=== PATIENT | female | born 1945 | race Caucasian/White ===

== ENCOUNTER → 2017-06-06 | Outpatient (CLI) | payer MEDICARE ==
--- NOTE | 2017-06-06 15:26 | US ---
EXAMINATION TYPE: US kidneys/renal and bladder DATE OF EXAM: 06/06/2017 COMPARISON: NONE CLINICAL HISTORY: Hematuria R31.9. Microscopic hematuria EXAM MEASUREMENTS: Right Kidney: 9.8 x 3.3 x 5.5 cm Left Kidney: 9.7 x 4.1 x 5.1 cm Right Kidney: wnl Left Kidney: Difficult to visualize due to overlying bowel gas/ Dilated renal pelvis= 2.0 cm Bladder: wnl Bilateral Jets seen: No There is prominent left renal pelvis without suspicious calyceal dilatation. No nephrolithiasis is s een. No masses are identified. The urinary bladder is anechoic. Bilateral ureteral jets are seen. IMPRESSION: No significant finding is seen to account for patient's symptoms the left kidney is noted suboptimall y evaluated. If symptoms persists further investigation with CT urogram would be advised.
--- NOTE | 2017-06-06 15:29 | US ---
EXAMINATION TYPE: US pelvic complete DATE OF EXAM: 06/06/2017 COMPARISON: NONE CLINICAL HISTORY: Hematuria R31.9. Microscopic hematuria TECHNIQUE: Transabdominal (TA) Date of LMP: 1998 EXAM MEASUREMENTS: Uterus: 7.1 x 2.0 x 4.1 cm Endometrial Stripe: 0.4 cm Right Ovary: 2.2 x 1.2 x 1.2 cm Left Ovary: 2.2 x 1.7 x 1.3 cm 1. Uterus: Anteverted wnl 2. Endometrium: wnl 3. Right Ovary: wnl 5. Bilateral Adnexa: wnl 6. Posterior cul-de-sac: wnl No abnormality visualized within pelvis IMPRESSION: Transabdominal pelvic ultrasound evaluation is unremarkable.
== END | disposition home or self-care (01) ==
LOC: RADUSWWP 14:46
PROVIDERS: ATTEND Registered Nurse General Practice
DX: R31.9 Hematuria, unspecified (principal)
CPT/HCPCS: 76770; 76856

== ENCOUNTER → 2017-07-13 | Outpatient (CLI) | payer MEDICARE ==
--- NOTE | 2017-07-13 16:22 | BD ---
EXAMINATION TYPE: MG DEXA axial skeleton. DATE OF EXAM: 07/13/2017 COMPARISON: NONE CLINICAL HISTORY: Height: 5 FT 4 1/2 IN Weight: 121 FRAX RISK QUESTIONS: Alcohol (3 or more units per day): NO Family History (Parent hip fracture): YES Glucocorticoids (More than 3mos): NO (Ex: prednisone, prednisolone, methylprednisolone, dexamethasone, and hydrocortisone). History of Fracture in Adulthood: NO Secondary Osteoporosis: 1. Type 1 Diabetes: NO 2. Hyperthyroidism: NO 3. Menopause before 45: NO 4. Malnutrition: NO 5. Chronic liver disease: NO Rheumatoid Arthritis: NO Current Tobacco Use: NO RISK FACTORS HISTORY OF: Active: YES Postmenopausal woman: 53 MEDICATIONS: Prednisone or other steroids: SYMBICORT How Long: SEVERAL YEARS Additional Medications: ESTROGEN CREAM VAGINAL,SYMBICORT,SINGULAIR, PREVASTATIN Additional History: EXAM MEASUREMENTS: Bone mineral densitometry was performed using the [employer] System. Bone mineral density as measured about the Lumbar spine is: ----- L1-L4(G/cm2): 1.067 T Score Values are as follows: ----- L2: -2.0 ----- L3: -0.9 ----- L4: 1.1 ----- L1-L4: -0.9 Bone mineral density has: Increased 9.7% since study of: 2010 Bone mineral density about the R hip (g/cm2): 0.661 Bone mineral density about the L hip (g/cm2): 0.651 T Score values are as follows: -----R Neck: -2.7 -----L Neck: -2.8 -----R Total: -2.8 -----L Total: -2.8 Bone mineral density has: Decreased -3.8% since study of: 2010 IMPRESSION: Osteoporosis (T Score less than -2.5) as noted by T Score values at the There is increased fracture risk and therapy is usually indicated based on age. Re-Screen 1-2 years. NOTE: T-SCORE=SD OF THE YOUNG ADULT MEAN.
--- NOTE | 2017-07-17 08:28 | MM ---
Reason for exam: screening (asymptomatic). Last mammogram was performed 3 years and 1 month ago. History: Patient is postmenopausal. Physical Findings: A clinical breast exam by your physician is recommended on an annual basis and results should be correlated with mammographic findings. MG 3D Screening Mammo W/Cad Bilateral CC and MLO view(s) were taken. Prior study comparison: June 18, 2014, right breast MG work up mamm w CAD RT. June 16, 2014, bilateral MG screening mammo w CAD. Summation right posterior MLO view, negative on tomosynthesis. No significant changes when compared with prior studies. ASSESSMENT: Benign, BI-RAD 2 RECOMMENDATION: Routine screening mammogram of both breasts in 1 year.
== END | disposition home or self-care (01) ==
LOC: RADBDWWP 12:41
PROVIDERS: ATTEND Family Medicine
DX: Z12.31 Encounter for screening mammogram for malignant neoplasm of breast (principal); M81.0 Age-related osteoporosis without current pathological fracture
CPT/HCPCS: 77080; 77063; G0202

== ENCOUNTER → 2019-08-01 | Outpatient (CLI) | payer MEDICARE ==
--- NOTE | 2019-08-02 12:11 | MM ---
Reason for exam: screening (asymptomatic). Last mammogram was performed 2 years and 1 month ago. History: Patient is postmenopausal. Took hormonal contraceptives for 15 years. Physical Findings: A clinical breast exam by your physician is recommended on an annual basis and results should be correlated with mammographic findings. MG 3D Screening Mammo W/Cad Bilateral CC and MLO view(s) were taken. Prior study comparison: July 13, 2017, bilateral MG 3d screening mammo w/cad. June 18, 2014, right breast MG work up mamm w CAD RT. There are scattered fibroglandular densities. No suspicious abnormality. No significant changes when compared with prior studies. ASSESSMENT: Negative, BI-RAD 1 RECOMMENDATION: Routine screening mammogram of both breasts in 1 year.
== END | disposition home or self-care (01) ==
LOC: RADMAMWWP 11:03
PROVIDERS: ATTEND Family Medicine
DX: Z12.31 Encounter for screening mammogram for malignant neoplasm of breast (principal)
CPT/HCPCS: 77063; 77067

== ENCOUNTER 2023-04-20 08:13 | Observation (INO) | payer MEDICARE ==
[2023-04-20] MEDS ORDERED: ASPIRIN 81 MG PO STA (08:30)
[2023-04-20] MEDS ORDERED: DILTIAZEM DRIP BOLUS FROM BAG 1 MG SOLN IV ONE (08:42)
[2023-04-20] MEDS ORDERED: HEPARIN SODIUM 1,000 UN/ML (10ML VL) IV PRN (08:43)
[2023-04-20] MEDS ORDERED: HEPARIN SODIUM 1,000 UN/ML (10ML VL) IV ONE (08:43)
[2023-04-20] MEDS ORDERED: SODIUM CHLORIDE 0.9% 1,000 ML IV STA (08:50)
[2023-04-20] MEDS ORDERED: DILTIAZEM 125 MG in SODIUM CHLORIDE 0.9% 100 ML IV SCH ×3 (09:00→10:00)
[2023-04-20 09:05] LABS: Basophils % (A) 1 %; Eosinophils # (A) 0.1 k/uL (0-0.7); Eosinophils % (A) 2 %; HCT 48.6 % (34.0-46.0); HGB 15.9 gm/dL (11.4-16.0); Lymphocytes # (A) 2.1 k/uL (1.0-4.8); Lymphocytes % (A) 35 %; MCH 33.1 pg (25.0-35.0); MCHC 32.7 g/dL (31.0-37.0); Macrocytosis Slight; Mean Platelet Volume 8.3; Monocytes # (A) 0.5 k/uL (0-1.0); Monocytes % (A) 8 %; Neutrophils # (A) 3.1 k/uL (1.3-7.7); Neutrophils % (A) 52 %; Platelet Count 313 k/uL (150-450); RBC 4.81 m/uL (3.80-5.40); RDW 13.3 % (11.5-15.5); WBC 5.9 k/uL (3.8-10.6)
--- NOTE | 2023-04-20 09:08 | ED ---
General Adult HPI - General Chief complaint: Recheck/Abnormal Lab/Rx Stated complaint: Poss Afib, sent over from [facility] Time Seen by Provider: 04/20/23 08:15 Source: patient, RN notes reviewed, old records reviewed Mode of arrival: wheelchair - History of Present Illness Initial comments: Patient is a 78 female who presents emergency Department complaining of A. fib with RVR. Patient has no symptoms. Has a history of DVT longer on blood thinners, asthma, chronic back pain. He was about to receive a nerve block at [facility] when it was discovered she was in A. fib with RVR. She is no history of the. Denies palpitations. Denies chest pain. Denies shortness of breath. Denies leg swelling. Denies abdominal pain, nausea, vomiting, diaphoresis. Was sent here for further evaluation. Was sent with her EKG. - Related Data Home Medications Medication Instructions Recorded Confirmed Aspirin EC [Ecotrin] 325 mg PO DAILY@1200 04/20/23 04/20/23 Budesonide/Formoterol Fumarate 2 puff INHALATION RT-BID 04/20/23 04/20/23 [Symbicort 160-4.5 Mcg Inhaler] Gabapentin 800 mg PO BID@0600,1900 04/20/23 04/20/23 Levothyroxine Sodium [Synthroid] 50 mcg PO DAILY@0600 04/20/23 04/20/23 Mirabegron [Myrbetriq] 50 mg PO HS@19004/20/23 04/20/23 Montelukast [Singulair] 10 mg PO HS@189904/20/23 04/20/23 Omeprazole [PriLOSEC] 20 mg PO HS@189904/20/23 04/20/23 Pentosan Polysulfate Sodium 100 mg PO TID@0600,1200,1900 04/20/23 04/20/23 [Elmiron] Pravastatin Sodium [Pravachol] 20 mg PO HS@19004/20/23 04/20/23 Tiotropium 18 Mcg/Puff [Spiriva] 1 cap INHALATION RT-DAILY 04/20/23 04/20/23 Vit C/E/Zn/Coppr/Lutein/Zeaxan 1 cap PO BID@1200,1900 04/20/23 04/20/23 [Preservision Areds 2 Softgel] traMADol HCL 50 mg PO BID PRN 04/20/23 04/20/23 Allergies Allergy/AdvReac Type Severity Reaction Status Date / Time No Known Allergies Allergy Verified 04/20/23 10:20 Review of Systems ROS Statement: Those systems with pertinent positive or pertinent negative responses have been documented in the HPI. Review of Systems: CONST: Denies fever EYES: Denies blurry vision ENT: Denies nasal congestion C/V: Denies Chest pain RESP: Denies shortness of breath GI: Denies abdominal pain : Denies dysuria SKIN: Denies rash. MSK: Denies joint pain. NEURO: Denies headache ROS Other: All systems not noted in ROS Statement are negative. Past Medical History Past Medical History: Asthma, Deep Vein Thrombosis (DVT) History of Any Multi-Drug Resistant Organisms: None Reported Additional Past Surgical History / Comment(s): DVT removal 2018 Past Psychological History: No Psychological Hx Reported Smoking Status: Never smoker Past Alcohol Use History: None Reported Past Drug Use History: None Reported General Exam - General Exam Comments Initial Comments: General: Appears in no acute distress. HEAD: Normal with no signs of head trauma. EYES: PERRLA, EOMI, conjunctiva normal, no discharge. ENT: Hearing grossly intact, normal oropharynx. RESPIRATORY: Clear breath sounds bilaterally. No wheezes, rales, or rhonchi. C/V: Irregular rate and rhythm. S1 and S2 auscultated. No significant perip heral pitting edema. Peripheral pulses 2+ intact throughout. ABD: Abd is soft, nontender, nondistended EXT: Normal range of motion, no obvious deformity SKIN: No rashes or lesions observed on exposed skin. NEURO: Alert and oriented x 4. Cranial nerves II-XII intact. No focal sensory or strength deficits. Course Vital Signs 04/20/23 08:15 Temperature 97.6 F Pulse Rate 63 Respiratory 18 Rate Blood Pressure 141/79 O2 Sat by Pulse 96 Oximetry Medical Decision Making - Medical Decision Making Was pt. sent in by a medical professional or institution (, PA, [employer], urgent care, hospital, or [facility]...) When possible be specific @ -Patient sent in from [facility]. I spoke with Dr. Gamble her anesthesiologist there who informed me of the patient's impending arrival.. Did you speak to anyone other than the patient for history (EMS, parent, family, police, friend...)? What history was obtained from this source @ -No Did you review nursing and triage notes (agree or disagree)? Why? @ -I reviewed and agree with nursing and triage notes Were old charts reviewed (outside hosp., previous admission, EMS record, old EKG, old radiological studies, urgent care reports/EKG's, [facility] records)? Report findings @ -No old charts were reviewed Differential Diagnosis (chest pain, altered mental status, abdominal pain women, abdominal pain men, vaginal bleeding, weakness, fever, dyspnea, syncope, headache, dizziness, GI bleed, back pain, seizure, CVA, palpatations, mental health, musculoskeletal)? @ -New-onset atrial fibrillation, ACS, PE, infection, electrolyte abnormality. This list is not all inclusive. EKG interpreted by me (3pts min.). @ -As above X-rays interpreted by me (1pt min.). @ -Chest x-ray reveals no obvious acute cardio pulmonary process. CT interpreted by me (1pt min.). @ -None done U/S interpreted by me (1pt. min.). @ -None done What testing was considered but not performed or refused? (CT, X-rays, U/S, labs)? Why? @ -None What meds were considered but not given or refused? Why? @ -None Did you discuss the management of the patient with other professionals (professionals i.e. , PA, [employer], lab, RT, psych nurse, psychosocial rehabilitation counselor, bond manager, teacher, credit review officer, assistant case manager)? Give summary @ -Discussed with the admitting physician Dr. Treva arias who accepted the patient. Was smoking cessation discussed for >3mins.? @ -No Was critical care preformed (if so, how long)? @ -Yes, 38 minutes Were there social determinants of health that impacted care today? How? (Homelessness, low income, unemployed, alcoholism, drug addiction, transportation, low edu. Level, literacy, decrease access to med. care, shelter, rehab)? @ -No Was there de-escalation of care discussed even if they declined (Discuss DNR or withdrawal of care, Hospice)? DNR status @ -No What co-morbidities impacted this encounter? (DM, HTN, Smoking, COPD, CAD, Cancer, CVA, ARF, Chemo, Hep., AIDS, mental health diagnosis, sleep apnea, morbid obesity)? @ -None Was patient admitted / discharged? Hospital course, mention meds given and route, prescriptions, significant lab abnormalities, going to OR and other pertinent info. @ -Based on the patient's presentation and physical exam, the patient will RVR. Heart rate was documented is normal in triage however at bedside patient appears to be in A. fib with RVR as her pulse is irregularly irregular. EKG doesn't support this. No evidence of acute ischemia. We will obtain cardiac workup. Patient was in agreement this plan. She was started on Cardizem drip as well as a heparin drip for the A. fib. Vital signs otherwise are within acceptable limits. She is hemodynamically stable except for the A. fib with RVR. She was in agreement this plan. Patient did not require a Cardizem bolus as her heart rate did decrease spontaneously to 110-125. She is placed on a Cardizem drip and remained stable in this range. EKG shows A. fib with RVR with no evidence of acute ischemia. Imaging unremarkable. Labs are unremarkable this includes an undetectable troponin, as was a d-dimer that is within normal limits. Patient does appear to have a UTI on urinalysis. She'll be started on Rocephin for her. Patient was in agreement this plan. I updated her on the results of her workup. She will be admitted on the Cardizem drip and on heparin for cardiology evaluation. Echo was ordered. I spoke with the admitting team, city call Dr. Tilley who accepted the admission. Undiagnosed new problem with uncertain prognosis? @ -No Drug Therapy requiring intensive monitoring for toxicity (Heparin, Nitro, Insulin, Cardizem)? @ -yes, cardizem, heparin Were any procedures done? @ -No Diagnosis/symptom? @ -New-onset atrial for ablation with RVR Acute, or Chronic, or Acute on Chronic? @ -Acute Uncomplicated (without systemic symptoms) or Complicated (systemic symptoms)? @ -Uncomplicated Side effects of treatment? @ -No Exacerbation, Progression, or Severe Exacerbation? @ -No Poses a threat to life or bodily function? How? (Chest pain, [place], [place], pneumonia, PE, COPD, DKA, ARF, appy, cholecystitis, CVA, Diverticulitis, Homicidal, Suicidal, threat to staff... and all critical care pts) @ -Potentially yes Diagnosis/symptom? @ -UTI Acute, or Chronic, or Acute on Chronic? @ -Acute Uncomplicated (without systemic symptoms) or Complicated (systemic symptoms)? @ -Complicated Side effects of treatment? @ -none Exacerbation, Progression, or Severe Exacerbation] @ -no Poses a threat to life or bodily function? @ -no - Lab Data Result diagrams: 04/20/23 08:49 04/20/23 08:49 Lab Results 04/20/23 04/20/23 04/20/23 Range/Units 08:49 08:49 08:49 WBC 5.9 (3.8-10.6) k/uL RBC 4.81 (3.80-5.40) m/uL Hgb 15.9 (11.4-16.0) gm/dL Hct 48.6 H (34.0-46.0) % MCV 101.0 H (80.0-100.0) fL MCH 33.1 (25.0-35.0) pg MCHC 32.7 (31.0-37.0) g/dL RDW 13.3 (11.5-15.5) % Plt Count 313 (150-450) k/uL MPV 8.3 Neutrophils % 52 % Lymphocytes % 35 % Monocytes % 8 % Eosinophils % 2 % Basophils % 1 % Neutrophils # 3.1 (1.3-7.7) k/uL Lymphocytes # 2.1 (1.0-4.8) k/uL Monocytes # 0.5 (0-1.0) k/uL Eosinophils # 0.1 (0-0.7) k/uL Basophils # 0.0 (0-0.2) k/uL Macrocytosis Slight PT 10.1 (9.0-12.0) sec INR 0.9 (<1.2) APTT 23.6 (22.0-30.0) sec D-Dimer 0.57 (<0.60) mg/L FEU Sodium (137-145) mmol/L Potassium (3.5-5.1) mmol/L Chloride (98-107) mmol/L Carbon Dioxide (22-30) mmol/L Anion Gap mmol/L BUN (7-17) mg/dL Creatinine (0.52-1.04) mg/dL Est GFR (CKD-EPI)AfAm (>60 ml/min/1.73 sqM) Est GFR (CKD-EPI)NonAf (>60 ml/min/1.73 sqM) Glucose (74-99) mg/dL Calcium (8.4-10.2) mg/dL Magnesium (1.6-2.3) mg/dL Total Bilirubin (0.2-1.3) mg/dL AST (14-36) U/L ALT (4-34) U/L Alkaline Phosphatase (38-126) U/L Troponin I (0.000-0.034) ng/mL NT-Pro-B Natriuret Pep pg/mL Total Protein (6.3-8.2) g/dL Albumin (3.5-5.0) g/dL Urine Color Colorless Urine Appearance Slightly Cloudy H (Clear) Urine pH 6.5 (5.0-8.0) Ur Specific [place] 1.010 (1.001-1.035) Urine Protein Negative (Negative) Urine Glucose (UA) Negative (Negative) Urine Ketones Negative (Negative) Urine Blood Negative (Negative) Urine Nitrite Positive H (Negative) Urine Bilirubin Negative (Negative) Urine Urobilinogen <2.0 (<2.0) mg/dL Ur Leukocyte Esterase Large (Negative) Urine RBC <1 (0-5) /hpf Urine WBC 159 H (0-5) /hpf Urine Bacteria Rare H (None) /hpf Urine Mucus Rare H (None) /hpf 04/20/23 04/20/23 Range/Units 08:49 08:49 WBC (3.8-10.6) k/uL RBC (3.80-5.40) m/uL Hgb (11.4-16.0) gm/dL Hct (34.0-46.0) % MCV (80.0-100.0) fL MCH (25.0-35.0) pg MCHC (31.0-37.0) g/dL RDW (11.5-15.5) % Plt Count (150-450) k/uL MPV Neutrophils % % Lymphocytes % % Monocytes % % Eosinophils % % Basophils % % Neutrophils # (1.3-7.7) k/uL Lymphocytes # (1.0-4.8) k/uL Monocytes # (0-1.0) k/uL Eosinophils # (0-0.7) k/uL Basophils # (0-0.2) k/uL Macrocytosis PT (9.0-12.0) sec INR (<1.2) APTT (22.0-30.0) sec D-Dimer (<0.60) mg/L FEU Sodium 143 (137-145) mmol/L Potassium 4.1 (3.5-5.1) mmol/L Chloride 108 H (98-107) mmol/L Carbon Dioxide 27 (22-30) mmol/L Anion Gap 8 mmol/L BUN 12 (7-17) mg/dL Creatinine 0.72 (0.52-1.04) mg/dL Est GFR (CKD-EPI)AfAm >90 (>60 ml/min/1.73 sqM) Est GFR (CKD-EPI)NonAf 82 (>60 ml/min/1.73 sqM) Glucose 95 (74-99) mg/dL Calcium 9.9 (8.4-10.2) mg/dL Magnesium 2.0 (1.6-2.3) mg/dL Total Bilirubin 0.4 (0.2-1.3) mg/dL AST 38 H (14-36) U/L ALT 39 H (4-34) U/L Alkaline Phosphatase 102 (38-126) U/L Troponin I <0.012 (0.000-0.034) ng/mL NT-Pro-B Natriuret Pep 81 pg/mL Total Protein 7.3 (6.3-8.2) g/dL Albumin 4.2 (3.5-5.0) g/dL Urine Color Urine Appearance (Clear) Urine pH (5.0-8.0) Ur Specific [place] (1.001-1.035) Urine Protein (Negative) Urine Glucose (UA) (Negative) Urine Ketones (Negative) Urine Blood (Negative) Urine Nitrite (Negative) Urine Bilirubin (Negative) Urine Urobilinogen (<2.0) mg/dL Ur Leukocyte Esterase (Negative) Urine RBC (0-5) /hpf Urine WBC (0-5) /hpf Urine Bacteria (None) /hpf Urine Mucus (None) /hpf - EKG Data -: EKG Interpreted by Me EKG Comments: 12-lead Electrocardiogram Interpretation Note EKG was reviewed and interpreted by myself. 12-lead ECG performed at 0833 is interpreted by me as revealing atrial fibrillation with RVR at a rate of 144 beats per minute. Indeterminate axis. QRS duration is 89 ms, QTc is 363 ms.. There were no obvious acute ST or T wave abnormalities to suggest myocardial ischemia or injury. R wave progression across the precordium was satisfactory. By my interpretation this EKG is non-diagnostic for acute ischemia. Critical Care Time Critical Care Time: Yes Total Critical Care Time: 38 Disposition Clinical Impression: New onset a-fib, Atrial fibrillation with RVR, UTI (urinary tract infection) Disposition: ADMITTED IP TO THIS HOSP Condition: Stable Referrals: Nonstaff,Physician [REFERRING] - 1-2 days Time of Disposition: 10:09
--- NOTE | 2023-04-20 09:12 | XR ---
EXAMINATION TYPE: XR chest 2V DATE OF EXAM: 04/20/2023 COMPARISON: None HISTORY: 78-year-old female with chest pain TECHNIQUE: PA and lateral views FINDINGS: Heart normal size. Aorta and pulmonary vasculature within normal limits. Mild interstitial prominence and hyperinflation with flattening of the hemidiaphragms. No consolidation or pleural effusion seen. IMPRESSION: COPD and chronic appearing changes. No definite acute process.
[2023-04-20 09:23] LABS: INR 0.9 (<1.2); Partial Thromboplastin Time 23.6 sec (22.0-30.0); Prothrombin Time 10.1 sec (9.0-12.0)
[2023-04-20] MEDS: HEPARIN SOD,PORK IN 0.45% NACL 25,000 UNIT in 0.45% NACL 1 250ML.BAG IV SCH (09:30)
[2023-04-20 09:38] LABS: ALT 39 U/L (4-34); AST 38 U/L (14-36); African American GFR (CKD) >90 (>60 ml/min/1.73 sqM); Albumin 4.2 g/dL (3.5-5.0); Alkaline Phosphatase 102 U/L (38-126); Anion Gap 8 mmol/L; Blood Urea Nitrogen 12 mg/dL (7-17); Calcium 9.9 mg/dL (8.4-10.2); Carbon Dioxide 27 mmol/L (22-30); Chloride 108 mmol/L (98-107); Glucose 95 mg/dL (74-99); Non-African American GFR(CKD) 82 (>60 ml/min/1.73 sqM); Potassium 4.1 mmol/L (3.5-5.1); Sodium 143 mmol/L (137-145); Total Bilirubin 0.4 mg/dL (0.2-1.3); Total Protein 7.3 g/dL (6.3-8.2)
[2023-04-20 09:47] LABS: NT-Pro-B-Type Natriuretic Pept 81 pg/mL
[2023-04-20] MEDS: DILTIAZEM 125 MG in SODIUM CHLORIDE 0.9% 100 ML IV SCH (10:00)
[2023-04-20] MEDS ORDERED: NALOXONE 0.4 MG/ML 1 ML VIAL IV PRN (10:18)
[2023-04-20] MEDS ORDERED: ACETAMINOPHEN TAB 325 MG TAB PO PRN (10:24)
[2023-04-20 11:27] LABS: Bacteria,Urine Rare /hpf; Mucus,Urine Rare /hpf; RBC,Urine <1 /hpf (0-5); WBC,Urine 159 /hpf (0-5)
[2023-04-20 11:33] LABS: Appearance,Urine Slightly Cloudy (Clear); Color,Urine Colorless
[2023-04-20 11:34] LABS: Bilirubin,Urine Negative (Negative); Blood,Urine Negative (Negative); Glucose,Urine (UA) Negative (Negative); Ketones,Urine Negative (Negative); PH, Urine 6.5 (5.0-8.0); Protein,Urine Negative (Negative); Urobilinogen,Urine <2.0 mg/dL (<2.0)
[2023-04-20 11:39] LABS: Leukocyte Esterase,Urine Large (Negative); Nitrite,Urine Positive (Negative)
[2023-04-20] MEDS ORDERED: traMADol 50 MG TAB PO PRN (12:24)
--- NOTE | 2023-04-20 17:44 | P.HPIM ---
History of Present Illness H&P Date: 04/20/23 Chief Complaint: Atrial fibrillation 78-year-old woman with a medical history of chronic back pain, hypertension, hyperlipidemia, hypothyroidism presented for evaluation of atrial fibrillation with rapid ventricular response. Patient was at her pain clinic for nerve blocks in her back for chronic back pain when she was noted to be in atrial fibrillation with rapid ventricular response was sent into the emergency room for further evaluation. Patient was completely symptomatically this did not feel palpitations, chest pain, shortness of breath, syncope, presyncope, cough, dyspnea, abdominal pain, constipation, diarrhea, dysuria, dyschezia, numbness/weakness of extremities. In the emergency room, patient was afebrile, 106/85, heart rate 128, 95% on room air. CBC was unremarkable. Basic metabolic panel is unremarkable. Liver function tests showed mild elevation of AST to 38 and ALT 39, otherwise unremarkable. BNP was 81. Troponin was 0.012. Repeat troponins were less than 0.0122. UA showed positive nitrite, 159 white blood cells, rare bacteria. Coags are unremarkable. D-dimer was 0.57. EKG showed atrial fibrillation with rapid ventricular response, right axis deviation, low voltage QRS overall, occasional PVCs. Chest x-ray shows hyperinflation with flattening of the diaphragms, no acute cardiopulmonary process. Case is discussed with the [facility] provider decision was made to admit the patient for further evaluation of new onset atrial fibrillation. All Systems reviewed and pertinent positives and negatives noted in HPI, all other symptoms are negative Gen: in no apparent distress, resting comfortably in bed Eyes: PERRL, no scleral injection or icterus HENT: normocephalic, atraumatic, good hearing acuity, moist mucous membranes Neck: no tracheal deviation, full range of motion Resp: good air exchange, breathing comfortably with no accessory muscle use, no tactile fremitus CVS: good distal perfusion x 4, no pitting edema GI: soft, NTTP, ND, no hepatosplenomegaly : no suprapubic tenderness, no CVAT, henderson catheter not present MSK: no clubbing, no cyanosis, no noted contractures of extremities Skin: no noted rashes, petechiae; temperature of skin is appropriate Neuro: moving all extremities without signs of weakness, CN II-XII intact Psych: cooperative, euthymic mood, insight and judgment intact Labs and imaging as above Assessment: Paroxysmal atrial fibrillation with rapid ventricular response Hypertension Hyperlipidemia Hypothyroidism Chronic back pain Plan: Vital signs reviewed and noted in the HPI Lab work reviewed and noted in the HPI EKG and CXR are personally interpreted and noted in the HPI Case was discussed with the Emergency Room provider and decision was made to admit the patient for atrial fibrillation Heparin drip started Cardizem drip started Cardiology consulted Echocardiogram ordered Pain consult ordered Patient is full code Past Medical History Past Medical History: Asthma, Deep Vein Thrombosis (DVT) History of Any Multi-Drug Resistant Organisms: None Reported Additional Past Surgical History / Comment(s): DVT removal 2018 Past Psychological History: No Psychological Hx Reported Smoking Status: Never smoker Past Alcohol Use History: None Reported Past Drug Use History: None Reported Medications and Allergies Home Medications Medication Instructions Recorded Confirmed Type Aspirin EC [Ecotrin] 325 mg PO DAILY@1200 04/20/23 04/20/23 History Budesonide/Formoterol Fumarate 2 puff INHALATION RT-BID 04/20/23 04/20/23 History [Symbicort 160-4.5 Mcg Inhaler] Gabapentin 800 mg PO BID@0600,1900 04/20/23 04/20/23 History Levothyroxine Sodium [Synthroid] 50 mcg PO DAILY@0600 04/20/23 04/20/23 History Mirabegron [Myrbetriq] 50 mg PO HS@189904/20/23 04/20/23 History Montelukast [Singulair] 10 mg PO HS@189904/20/23 04/20/23 History Omeprazole [PriLOSEC] 20 mg PO HS@189904/20/23 04/20/23 History Pentosan Polysulfate Sodium 100 mg PO TID@0600,1200,1900 04/20/23 04/20/23 History [Elmiron] Pravastatin Sodium [Pravachol] 20 mg PO HS@189904/20/23 04/20/23 History Tiotropium 18 Mcg/Puff [Spiriva] 1 cap INHALATION RT-DAILY 04/20/23 04/20/23 History Vit C/E/Zn/Coppr/Lutein/Zeaxan 1 cap PO BID@1200,1900 04/20/23 04/20/23 History [Preservision Areds 2 Softgel] traMADol HCL 50 mg PO BID PRN 04/20/23 04/20/23 History Allergies Allergy/AdvReac Type Severity Reaction Status Date / Time No Known Allergies Allergy Verified 04/20/23 10:20 Physical Exam Osteopathic Statement: *. No significant issues noted on an osteopathic structural exam other than those noted in the History and Physical/Consult. Vitals: Vital Signs Temp Pulse Resp BP Pulse Ox 04/20/23 13:20 118 H 17 107/79 04/20/23 13:10 116 H 24 107/79 96 04/20/23 13:00 116 H 11 L 108/85 95 04/20/23 12:50 137 H 18 108/85 95 04/20/23 12:40 128 H 15 106/85 04/20/23 12:30 126 H 13 94/75 96 04/20/23 12:20 128 H 21 94/75 04/20/23 12:10 138 H 16 94/75 04/20/23 12:00 134 H 14 105/84 98 04/20/23 11:50 115 H 12 105/84 94 L 04/20/23 11:40 120 H 12 105/84 93 L 04/20/23 11:30 107 H 17 122/96 93 L 04/20/23 11:20 115 H 16 122/96 95 04/20/23 11:10 124 H 9 L 122/96 95 04/20/23 11:00 122 H 15 124/70 04/20/23 10:50 128 H 16 124/70 04/20/23 10:40 121 H 8 L 124/70 04/20/23 10:30 115 H 10 L 122/92 04/20/23 10:20 128 H 11 L 122/92 04/20/23 10:10 130 H 8 L 122/92 81 L 04/20/23 10:00 133 H 23 157/106 81 L 04/20/23 09:50 128 H 17 157/106 97 04/20/23 09:40 118 H 7 L 157/106 98 04/20/23 09:30 111 H 14 145/87 98 04/20/23 09:25 125 H 9 L 04/20/23 08:15 97.6 F 63 18 141/79 96 Intake and Output 04/20/23 04/20/23 04/20/23 06:59 14:59 22:59 Other: Weight 58.967 kg Results CBC & Chem 7: 04/20/23 08:49 04/20/23 08:49 Labs: Abnormal Lab Results - Last 24 Hours (Table) 04/20/23 04/20/23 04/20/23 Range/Units 08:49 08:49 08:49 Hct 48.6 H (34.0-46.0) % MCV 101.0 H (80.0-100.0) fL APTT (22.0-30.0) sec Chloride 108 H (98-107) mmol/L AST 38 H (14-36) U/L ALT 39 H (4-34) U/L Urine Appearance Slightly Cloudy H (Clear) Urine Nitrite Positive H (Negative) Urine WBC 159 H (0-5) /hpf Urine Bacteria Rare H (None) /hpf Urine Mucus Rare H (None) /hpf 04/20/23 Range/Units 14:51 Hct (34.0-46.0) % MCV (80.0-100.0) fL APTT 63.6 H (22.0-30.0) sec Chloride (98-107) mmol/L AST (14-36) U/L ALT (4-34) U/L Urine Appearance (Clear) Urine Nitrite (Negative) Urine WBC (0-5) /hpf Urine Bacteria (None) /hpf Urine Mucus (None) /hpf
--- NOTE | 2023-04-20 18:10 | CA ---
Transthoracic Echo Report Name: Radha Bird Age: 78 Gender: F : 1945 Exam Date: 04/20/2023 10:42 Exam Location: [facility] Ht (in): 66 Wt (lb): 130 Ordering Physician: Marcio Osborne MD Attending/Referring Phys: Culturist Yfn Nicole Procedure CPT: Indications: afib Cardiac Hx: Technical Quality: Fair Contrast 1: Total Dose (mL): Contrast 2: Total Dose (mL): MEASUREMENTS (Male / Female) Normal Values 2D ECHO LV Diastolic Diameter PLAX 3.4 cm 4.2 - 5.9 / 3.9 - 5.3 cm LV Systolic Diameter PLAX 2.5 cm IVS Diastolic Thickness 1.0 cm 0.6 - 1.0 / 0.6 - 0.9 cm LVPW Diastolic Thickness 1.0 cm 0.6 - 1.0 / 0.6 - 0.9 cm LV Relative Wall Thickness 0.6 RV Internal Dim ED PLAX 2.6 cm LVOT Diameter 2.0 cm Aortic Root Diameter 3.0 cm LA Systolic Diameter LX 2.7 cm 3.0 - 4.0 / 2.7 - 3.8 cm LV Diastolic Volume MOD BP 27.5 cm??? 67 - 155 / 56 - 104 cm??? LV Systolic Volume MOD BP 10.8 cm??? - 58 / 19 - 49 cm??? LV Ejection Fraction MOD BP 60.6 % >= 55 % LV Cardiac Index MOD BP 1310.0 cm???/min???m??? LV Diastolic Volume MOD 4C 32.2 cm??? LV Systolic Volume MOD 4C 11.9 cm??? LV Ejection Fraction MOD 4C 63.2 % LV Cardiac Index MOD 4C 1596.0 cm???/min???m??? LV Diastolic Length 4C 5.3 cm LV Systolic Length 4C 4.6 cm LV Diastolic Volume MOD 2C 19.9 cm??? LV Systolic Volume MOD 2C 8.3 cm??? LV Ejection Fraction MOD 2C 58.0 % LV Cardiac Index MOD 2C 904.3 cm???/min???m??? LV Diastolic Length 2C 4.5 cm LV Systolic Length 2C 3.8 cm LA Volume 37.9 cm??? 18 - 58 / 22 - 52 cm??? Ascending Aorta Diameter 2.7 cm DOPPLER AV Peak Velocity 107.7 cm/s AV Peak Gradient 4.6 mmHg LVOT Peak Velocity 100.2 cm/s LVOT Peak Gradient 4.0 mmHg AV Area Cont Eq pk 2.9 cm??? MV Peak Velocity 108.0 cm/s MV Peak Gradient 4.7 mmHg MV Mean Velocity 53.2 cm/s MV Mean Gradient 1.5 mmHg MV Velocity Time Integral 24.2 cm MR Peak Velocity 461.6 cm/s MR Peak Gradient 85.2 mmHg MV E' Velocity 5.3 cm/s TR Peak Velocity 231.6 cm/s TR Peak Gradient 21.5 mmHg Right Ventricular Systolic Press 26.8 mmHg PV Peak Velocity 84.4 cm/s PV Peak Gradient 2.8 mmHg FINDINGS Left Ventricle Normal LV size and wall thickness. Left ventricular ejection fraction is estimated at 55-60 %.normal left ventricular wall motion. Right Ventricle Normal right ventricular size. RVSP= 31mmhg. Right Atrium Normal right atrial size. Left Atrium Normal left atrial size. LA Volume index= 23ml/m2 Mitral Valve Structurally normal mitral valve. Mild MR.mitral annular calcification. Aortic Valve Trileaflet aortic valve. No aortic valve stenosis or regurgitation. Tricuspid Valve Structurally normal tricuspid valve. Mild TR. Pulmonic Valve Structurally normal pulmonic valve. Trace pulmonic regurgitation. Pericardium Normal pericardium. Aorta Normal size aortic root and proximal ascending aorta. CONCLUSIONS 1. Normal left ventricular size and systolic function 2. Mild mitral and tricuspid regurgitation with normal right ventricular systolic pressure Previewed by: Dr. Shirley Adams MD (Electronically Signed) Final Date: 20 April 2023 18:08
[2023-04-20] MEDS: GABAPENTIN 400 MG CAP PO SCH (18:59)
[2023-04-20] MEDS: PRAVASTATIN SODIUM 20 MG TAB PO SCH (19:00)
[2023-04-20] MEDS: MONTELUKAST 10 MG TAB PO SCH (19:00)
[2023-04-20] MEDS: SYMBICORT 160-4.5 MCG INHALER INHALATION SCH (20:35)
[2023-04-21] MEDS: LEVOTHYROXINE 50 MCG TAB PO SCH (05:16)
[2023-04-21] MEDS: GABAPENTIN 400 MG CAP PO SCH ×2 (05:16→21:06)
[2023-04-21 06:49] LABS: Basophils # (A) 0.1 k/uL (0-0.2); Basophils % (A) 1 %; Eosinophils # (A) 0.2 k/uL (0-0.7); Eosinophils % (A) 2 %; HCT 47.9 % (34.0-46.0); HGB 15.7 gm/dL (11.4-16.0); Lymphocytes # (A) 3.5 k/uL (1.0-4.8); Lymphocytes % (A) 39 %; MCHC 32.8 g/dL (31.0-37.0); MCV 100.4 fL (80.0-100.0); Mean Platelet Volume 8.3; Monocytes # (A) 0.5 k/uL (0-1.0); Monocytes % (A) 5 %; Neutrophils # (A) 4.7 k/uL (1.3-7.7); Neutrophils % (A) 52 %; Platelet Count 265 k/uL (150-450); RBC 4.77 m/uL (3.80-5.40); WBC 9.1 k/uL (3.8-10.6)
[2023-04-21 06:57] LABS: INR 1.1 (<1.2); Prothrombin Time 11.4 sec (9.0-12.0)
[2023-04-21] MEDS: IPRATROPIUM 0.5 MG/2.5 ML NEBU INHALATION SCH ×2 (07:53→12:11)
[2023-04-21] MEDS: SYMBICORT 160-4.5 MCG INHALER INHALATION SCH ×2 (07:53→20:28)
[2023-04-21 08:10] LABS: African American GFR (CKD) >90 (>60 ml/min/1.73 sqM); Anion Gap 9 mmol/L; Blood Urea Nitrogen 10 mg/dL (7-17); Calcium 9.3 mg/dL (8.4-10.2); Carbon Dioxide 21 mmol/L (22-30); Chloride 112 mmol/L (98-107); Glucose 107 mg/dL (74-99); Non-African American GFR(CKD) 89 (>60 ml/min/1.73 sqM); Potassium 4.3 mmol/L (3.5-5.1); Sodium 142 mmol/L (137-145)
[2023-04-21] MEDS: APIXABAN 5 MG TAB PO SCH ×2 (09:17→21:06)
[2023-04-21] MEDS: METOPROLOL TARTRATE 50 MG TAB PO SCH ×2 (09:17→21:06)
[2023-04-21] MEDS: HEPARIN SOD,PORK IN 0.45% NACL 25,000 UNIT in 0.45% NACL 1 250ML.BAG IV SCH (09:26)
--- NOTE | 2023-04-21 11:11 | P.CRDCN ---
History of Present Illness History of present illness: HISTORY OF PRESENT ILLNESS: This is a 78-year-old female with a past medical history significant for chronic back pain, hyperlipidemia, and hypothyroidism. 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 We have been asked to see the patient in consultation for atrial fibrillation. Patient examined at the bedside. Patient was scheduled to have a nerve block performed yesterday for her chronic back pain. An EKG was performed revealing atrial fibrillation with RVR. The patient was brought to the emergency room for further evaluation. The patient denies a history of atrial fibrillation. She denied having any palpitations at the time. She denies any chest pain or pressure. She denies any shortness of breath. The patient remains in atrial fibrillation this morning with a heart rate in the 120s. She remains on IV heparin and IV Cardizem. * EKG reveals atrial fibrillation with RVR * Chest xray COPD and chronic appearing changes. No definite acute process. * Laboratory data: WBC 9.1. Hemoglobin 15.7. Platelet count 265. Sodium 142. Potassium 4.3. BUN 10. Creatinine 0.60. Troponin negative 3. * Current home cardiac medications include aspirin 325 mg daily and Pravachol 20 mg at night * Echocardiogram completed revealed ejection fraction 55-60%, mild mitral and tricuspid regurgitation. REVIEW OF SYSTEMS: At the time of my exam: CONSTITUTIONAL: Denies fever or chills. HEENT: Denies blurred vision, vision changes, or eye pain. Denies hemoptysis CARDIOVASCULAR: Denies chest pain. Denies orthopnea. Denies PND. Denies palpitations RESPIRATORY: Denies shortness of breath. GASTROINTESTINAL: Denies abdominal pain. Denies nausea or vomiting. HEMATOLOGIC: Denies bleeding disorders. GENITOURINARY: Denies any blood in urine. SKIN: Denies pruitis. Denies rash. PHYSICAL EXAM: VITAL SIGNS: Reviewed. GENERAL: Well-developed in no acute distress. HEENT: Head is normocephalic. Pupils are equal, round. Sclerae anicteric. Mucous membranes of the mouth are moist. Neck supple. No JVD or thyromegaly LUNGS: Respirations even and unlabored. Lungs essentially clear to auscultation bilaterally. HEART: tachycardic. Irregular rate and rhythm. S1 and S2 heard. ABDOMEN: Soft. Nondistended. Nontender. EXTREMITIES: Normal range of motion. No clubbing or cyanosis. Peripheral pulses intact. No lower extremity edema NEUROLOGIC: Awake and alert. Oriented x 3. ASSESSMENT: New onset atrial fibrillation with RVR Hyperlipidemia Hypothyroidism Chronic back pain PLAN: 2D echo obtained and reviewed Obtain TSH Discontinue IV heparin. Begin Eliquis 5mg BID. Add Metoprolol tartrate 50 mg twice a day Wean off Cardizem drip as heart rate will tolerate Continue telemetry monitoring Further recommendations pending patient's course Nurse practitioner note has been reviewed by physician. Signing provider agrees with the documented findings, assessment, and plan of care. Past Medical History Past Medical History: Asthma, Deep Vein Thrombosis (DVT), Thyroid Disorder History of Any Multi-Drug Resistant Organisms: None Reported Additional Past Surgical History / Comment(s): DVT removal 2018 Past Anesthesia/Blood Transfusion Reactions: No Reported Reaction Additional Past Anesthesia/Blood Transfusion Reaction / Comment(s): never had blood before Past Psychological History: No Psychological Hx Reported Smoking Status: Never smoker Past Alcohol Use History: None Reported Past Drug Use History: None Reported Medications and Allergies Home Medications Medication Instructions Recorded Confirmed Type Aspirin EC [Ecotrin] 325 mg PO DAILY@1200 04/20/23 04/20/23 History Budesonide/Formoterol Fumarate 2 puff INHALATION RT-BID 04/20/23 04/20/23 History [Symbicort 160-4.5 Mcg Inhaler] Gabapentin 800 mg PO BID@0600,0 04/20/23 04/20/23 History Levothyroxine Sodium [Synthroid] 50 mcg PO DAILY@0600 04/20/23 04/20/23 History Mirabegron [Myrbetriq] 50 mg PO HS@189904/20/23 04/20/23 History Montelukast [Singulair] 10 mg PO HS@189904/20/23 04/20/23 History Omeprazole [PriLOSEC] 20 mg PO HS@189904/20/23 04/20/23 History Pentosan Polysulfate Sodium 100 mg PO TID@0600,1200,189904/20/23 04/20/23 History [Elmiron] Pravastatin Sodium [Pravachol] 20 mg PO HS@0 04/20/23 04/20/23 History Tiotropium 18 Mcg/Puff [Spiriva] 1 cap INHALATION RT-DAILY 04/20/23 04/20/23 History Vit C/E/Zn/Coppr/Lutein/Zeaxan 1 cap PO BID@1200,1900 04/20/23 04/20/23 History [Preservision Areds 2 Softgel] traMADol HCL 50 mg PO BID PRN 04/20/23 04/20/23 History Allergies Allergy/AdvReac Type Severity Reaction Status Date / Time No Known Allergies Allergy Verified 04/20/23 10:20 Physical Exam Vitals: Vital Signs Temp Pulse Pulse Resp BP BP Pulse Ox 04/21/23 08:12 70 04/21/23 07:53 74 96 04/21/23 04:00 97.9 F 92 18 116/89 92 L 04/21/23 00:09 98 F 105 H 16 134/89 96 04/20/23 23:00 111 H 17 92 L 04/20/23 22:00 125 H 20 137/99 93 L 04/20/23 20:30 101 H 18 139/99 94 L 04/20/23 20:00 92 20 139/99 98 04/20/23 19:30 101 H 139/84 95 04/20/23 19:00 105 H 19 93 L 04/20/23 18:30 108 H 124/82 04/20/23 17:30 98.8 F 107 H 19 126/87 04/20/23 16:30 123 H 136/91 94 L 04/20/23 15:30 106 H 20 111/84 95 04/20/23 14:30 128 H 13 95/70 94 L 04/20/23 13:30 117 H 107/79 04/20/23 13:20 118 H 17 107/79 04/20/23 13:10 116 H 24 107/79 96 04/20/23 13:00 116 H 11 L 108/85 95 04/20/23 12:50 137 H 18 108/85 95 04/20/23 12:40 128 H 15 106/85 04/20/23 12:30 126 H 13 94/75 96 04/20/23 12:20 128 H 21 94/75 04/20/23 12:10 138 H 16 94/75 04/20/23 12:00 134 H 14 105/84 98 04/20/23 11:50 115 H 12 105/84 94 L 04/20/23 11:40 120 H 12 105/84 93 L 04/20/23 11:30 107 H 17 122/96 93 L 04/20/23 11:20 115 H 16 122/96 95 04/20/23 11:10 124 H 9 L 122/96 95 04/20/23 11:00 122 H 15 124/70 04/20/23 10:50 128 H 16 124/70 04/20/23 10:40 121 H 8 L 124/70 04/20/23 10:30 115 H 10 L 122/92 04/20/23 10:20 128 H 11 L 122/92 04/20/23 10:10 130 H 8 L 122/92 81 L 04/20/23 10:00 133 H 23 157/106 81 L 04/20/23 09:50 128 H 17 157/106 97 04/20/23 09:40 118 H 7 L 157/106 98 04/20/23 09:30 111 H 14 145/87 98 04/20/23 09:25 125 H 9 L Intake and Output 04/20/23 04/21/23 04/21/23 22:59 06:59 14:59 Intake Total 200 Balance 200 Intake: Oral 200 Other: Voiding Method Toilet # Voids 1 Weight 58.967 kg Results 04/21/23 06:29 04/21/23 06:29 Cardiac Enzymes 04/20/23 04/20/23 04/20/23 Range/Units 08:49 08:49 12:39 AST 38 H (14-36) U/L Troponin I <0.012 <0.012 (0.000-0.034) ng/mL 04/20/23 Range/Units 14:51 AST (14-36) U/L Troponin I <0.012 (0.000-0.034) ng/mL Coagulation 04/20/23 04/20/23 04/21/23 Range/Units 08:49 14:51 06:29 PT 10.1 11.4 (9.0-12.0) sec APTT 23.6 63.6 H (22.0-30.0) sec CBC 04/20/23 04/21/23 Range/Units 08:49 06:29 WBC 5.9 9.1 (3.8-10.6) k/uL RBC 4.81 4.77 (3.80-5.40) m/uL Hgb 15.9 15.7 (11.4-16.0) gm/dL Hct 48.6 H 47.9 H (34.0-46.0) % Plt Count 313 265 (150-450) k/uL Comprehensive Metabolic Panel 04/20/23 04/21/23 Range/Units 08:49 06:29 Sodium 143 142 (137-145) mmol/L Potassium 4.1 4.3 (3.5-5.1) mmol/L Chloride 108 H 112 H (98-107) mmol/L Carbon Dioxide 27 21 L (22-30) mmol/L BUN 12 10 (7-17) mg/dL Creatinine 0.72 0.60 (0.52-1.04) mg/dL Glucose 95 107 H (74-99) mg/dL Calcium 9.9 9.3 (8.4-10.2) mg/dL AST 38 H (14-36) U/L ALT 39 H (4-34) U/L Alkaline Phosphatase 102 (38-126) U/L Total Protein 7.3 (6.3-8.2) g/dL Albumin 4.2 (3.5-5.0) g/dL Current Medications Generic Name Dose Route Start Last Admin Trade Name Freq PRN Reason Stop Dose Admin Acetaminophen 650 mg 04/20/23 10:24 Acetaminophen Tab 325 Mg Tab PO Q6HR PRN Mild Pain or Fever > 100.5 Budesonide/Formoterol Fumarate 2 puff 04/20/23 20:00 04/21/23 07:53 Symbicort 160-4.5 Mcg Inhaler INHALATION 2 puff RT-BID SU Administration Gabapentin 800 mg 04/20/23 19:00 04/21/23 05:16 Gabapentin 400 Mg Cap PO 800 mg BID@0600,1900 SU Administration Heparin Sodium (Porcine) 0 unit 04/20/23 08:43 Heparin Sodium 1,000 Un/Ml (10ml Vl) IV PER PROTOCOL PRN Low PTT Protocol Heparin Sodium/Sodium Chloride 250 mls @ 7.076 mls/hr 04/20/23 08:45 04/20/23 09:30 25,000 unit/ Sodium Chloride IV 12 units/kg/hr .Q24H SU 7.076 mls/hr Administration Protocol 12 UNITS/KG/HR Diltiazem HCl 125 mg/ Sodium 125 mls @ 2.5 mls/hr 04/20/23 09:56 04/20/23 10:00 Chloride IV 2.5 mg/hr .Q24H SU 2.5 mls/hr Administration Protocol 2.5 MG/HR Ceftriaxone Sodium 1 gm/ 50 mls @ 100 mls/hr 04/21/23 09:00 Sodium Chloride IVPB Q24HR [facility] Protocol Ipratropium [place] 0.5 mg 04/21/23 08:00 04/21/23 07:53 Ipratropium 0.5 Mg/2.5 Ml Nebu INHALATION 0.5 mg RT-QID [facility] Administration Levothyroxine Sodium 50 mcg 04/21/23 06:00 04/21/23 05:16 Levothyroxine 50 Mcg Tab PO 50 mcg DAILY@0600 [facility] Administration Montelukast Sodium 10 mg 04/20/23 19:00 04/20/23 19:00 Montelukast 10 Mg Tab PO 10 mg HS@1900 [facility] Administration Naloxone HCl 0.2 mg 04/20/23 10:18 Naloxone 0.4 Mg/Ml 1 Ml Vial IV Q2M PRN Opioid Reversal Mirabegron [ 50 mg 04/20/23 19:00 04/20/23 19:07 Myrbetriq] 50 Mg Tab PO Not Given .Er.24h HS@1900 [facility] Pravastatin Sodium 20 mg 04/20/23 19:00 04/20/23 19:00 Pravastatin Sodium 20 Mg Tab PO 20 mg HS@1900 [facility] Administration Tramadol HCl 50 mg 04/20/23 12:24 Tramadol 50 Mg Tab PO BID PRN Pain Intake and Output 04/20/23 04/21/23 04/21/23 22:59 06:59 14:59 Intake Total 200 Balance 200 Intake: Oral 200 Other: Voiding Method Toilet # Voids 1 Weight 58.967 kg 04/21/23 06:29 04/21/23 06:29
--- NOTE | 2023-04-21 13:35 | P.PN ---
Subjective Progress Note Date: 04/21/23 No new complaints today, Cardizem is a 2.5, adding metoprolol. Gen: in no apparent distress, resting comfortably in bed Eyes: PERRL, no scleral injection or icterus HENT: normocephalic, atraumatic, good hearing acuity, moist mucous membranes Neck: no tracheal deviation, full range of motion Resp: good air exchange, breathing comfortably with no accessory muscle use, no tactile fremitus CVS: good distal perfusion x 4, no pitting edema GI: soft, NTTP, ND, no hepatosplenomegaly : no suprapubic tenderness, no CVAT, henderson catheter not present MSK: no clubbing, no cyanosis, no noted contractures of extremities Skin: no noted rashes, petechiae; temperature of skin is appropriate Neuro: moving all extremities without signs of weakness, CN II-XII intact Psych: cooperative, euthymic mood, insight and judgment intact Assessment: Paroxysmal atrial fibrillation with rapid ventricular response Hypertension Hyperlipidemia Hypothyroidism Chronic back pain Plan: Today, patient is afebrile, 110/77, heart rate 121, 97% on room air CBC is unremarkable Basic metabolic panel shows chloride of 112, CO2 of 21 TSH is 1.34 UA showed positive nitrite Heparin drip started Cardizem drip started Cardiology consulted Ceftriaxone 1 g every 24 hours Echocardiogram ordered Pain consult ordered Patient is full code Objective - Vital Signs Vital signs: Vital Signs Temp 97.5 F L 04/21/23 08:00 Pulse 72 04/21/23 12:20 Resp 18 04/21/23 08:00 BP 110/77 04/21/23 08:00 Pulse Ox 97 04/21/23 08:00 FiO2 Intake & Output 04/20/23 04/21/23 04/21/23 18:59 06:59 18:59 Intake Total 266.708 Balance 266.708 Weight 58.967 kg 58.967 kg Intake: Intake, IV Titration 66.708 Amount Diltiazem 125 mg In 66.708 Sodium Chloride 0.9% 100 ml @ 2.5 MG/HR 2.5 mls/hr IV .Q24H SU Rx#: [id number] Oral 200 Other: Voiding Method Toilet Toilet # Voids 1 - Labs CBC & Chem 7: 04/21/23 06:29 04/21/23 06:29 Labs: Abnormal Lab Results - Last 24 Hours (Table) 04/20/23 04/21/23 04/21/23 Range/Units 14:51 06:29 06:29 Hct 47.9 H (34.0-46.0) % MCV 100.4 H (80.0-100.0) fL APTT 63.6 H (22.0-30.0) sec Chloride 112 H (98-107) mmol/L Carbon Dioxide 21 L (22-30) mmol/L Glucose 107 H (74-99) mg/dL
[2023-04-21] MEDS: MONTELUKAST 10 MG TAB PO SCH (18:12)
[2023-04-21] MEDS: PRAVASTATIN SODIUM 20 MG TAB PO SCH (18:12)
[2023-04-21] MEDS: DILTIAZEM 125 MG in SODIUM CHLORIDE 0.9% 100 ML IV SCH (18:51)
[2023-04-22] MEDS: GABAPENTIN 400 MG CAP PO SCH (05:16)
[2023-04-22] MEDS: LEVOTHYROXINE 50 MCG TAB PO SCH (05:16)
[2023-04-22 06:13] VITALS: PULSE 75
[2023-04-22] MEDS ORDERED: TIOTROPIUM 2.5 MCG INHALER INHALATION SCH (08:00)
[2023-04-22] MEDS: APIXABAN 5 MG TAB PO SCH (08:46)
[2023-04-22] MEDS: METOPROLOL TARTRATE 50 MG TAB PO SCH (08:46)
[2023-04-22 08:55] VITALS: BP 112/71; RESP 19; TEMP 97.5
[2023-04-22] MEDS: SYMBICORT 160-4.5 MCG INHALER INHALATION SCH (09:12)
--- NOTE | 2023-04-22 13:40 | P.DS ---
Providers Date of admission: 04/20/23 10:26 Expected date of discharge: 04/22/23 Attending physician: Maurilio Tilley MD Consults: 04/20/23 10:24 Consult Physician Routine Consulting Provider: Cardiology Rell Consult Reason/Comments: new onset afib Do you want consulting provider notified?: Yes 04/20/23 13:31 Consult Physician Routine Consulting Provider: Daysi Vera Consult Reason/Comments: Chronic back apin Do you want consulting provider notified?: Yes Primary care physician: Petey Barriga DO Hospital Course: Assessment: Paroxysmal atrial fibrillation with rapid ventricular response Hypertension Hyperlipidemia Hypothyroidism Chronic back pain 78-year-old woman with a medical history of chronic back pain, hypertension, hyperlipidemia, hypothyroidism presented for evaluation of atrial fibrillation with rapid ventricular response. In the emergency room, patient was afebrile, 106/85, heart rate 128, 95% on room air. CBC was unremarkable. Basic metabolic panel is unremarkable. Liver function tests showed mild elevation of AST to 38 and ALT 39, otherwise unremarkable. BNP was 81. Troponin was 0.012. Repeat troponins were less than 0.0122. UA showed positive nitrite, 159 white blood cells, rare bacteria. Coags are unremarkable. D-dimer was 0.57. EKG showed atrial fibrillation with rapid ventricular response, right axis deviation, low voltage QRS overall, occasional PVCs. Chest x-ray shows hyperinflation with flattening of the diaphragms, no acute cardiopulmonary process. Case is discussed with the emergency room provider decision was made to admit the patient for further evaluation of new onset atrial fibrillation. Patient was started on metoprolol, Apixiban was added while heparin was discontinued. She reverted back to normal sinus rhythm by discharge. She was also noted to have a urinary tract infection was started on ceftriaxone with completion of her course by by mouth cefdinir on discharge. She should follow-up with her primary care physician as well as cardiology. I spent 34 minutes coordinating this discharge on 04/22 Gen: in no apparent distress, resting comfortably in bed Eyes: PERRL, no scleral injection or icterus HENT: normocephalic, atraumatic, good hearing acuity, moist mucous membranes Neck: no tracheal deviation, full range of motion Resp: good air exchange, breathing comfortably with no accessory muscle use, no tactile fremitus CVS: good distal perfusion x 4, no pitting edema GI: soft, NTTP, ND, no hepatosplenomegaly : no suprapubic tenderness, no CVAT, henderson catheter not present MSK: no clubbing, no cyanosis, no noted contractures of extremities Skin: no noted rashes, petechiae; temperature of skin is appropriate Neuro: moving all extremities without signs of weakness, CN II-XII intact Psych: cooperative, euthymic mood, insight and judgment intact Patient Condition at Discharge: Good Plan - Discharge Summary Discharge Rx Participant: No New Discharge Prescriptions: New Metoprolol Tartrate [Lopressor] 50 mg PO BID #60 tab Acetaminophen Tab [Tylenol] 650 mg PO Q6HR PRN tab PRN Reason: Mild Pain Or Fever > 100.5 Apixaban [Eliquis] 5 mg PO BID #60 tab Cefdinir [Omnicef] 300 mg PO Q12HR #6 capsule Continue Gabapentin 800 mg PO BID@0600,1900 Montelukast [Singulair] 10 mg PO HS@1900 Omeprazole [PriLOSEC] 20 mg PO HS@1900 Pravastatin Sodium [Pravachol] 20 mg PO HS@1900 Vit C/E/Zn/Coppr/Lutein/Zeaxan [Preservision Areds 2 Softgel] 1 cap PO BID@1200,1900 Levothyroxine Sodium [Synthroid] 50 mcg PO DAILY@0600 Pentosan Polysulfate Sodium [Elmiron] 100 mg PO TID@0600,1200,1900 Aspirin EC [Ecotrin] 325 mg PO DAILY@1200 Budesonide/Formoterol Fumarate [Symbicort 160-4.5 Mcg Inhaler] 2 puff INHALATION RT-BID Mirabegron [Myrbetriq] 50 mg PO HS@1900 Tiotropium 18 Mcg/Puff [Spiriva] 1 cap INHALATION RT-DAILY traMADol HCL 50 mg PO BID PRN PRN Reason: Pain Discharge Medication List Aspirin EC [Ecotrin] 325 mg PO DAILY@1200 04/20/23 [History] Budesonide/Formoterol Fumarate [Symbicort 160-4.5 Mcg Inhaler] 2 puff INHALATION RT-BID 04/20/23 [History] Gabapentin 800 mg PO BID@0600,1900 04/20/23 [History] Levothyroxine Sodium [Synthroid] 50 mcg PO DAILY@0600 04/20/23 [History] Mirabegron [Myrbetriq] 50 mg PO HS@19004/20/23 [History] Montelukast [Singulair] 10 mg PO HS@189904/20/23 [History] Omeprazole [PriLOSEC] 20 mg PO HS@19004/20/23 [History] Pentosan Polysulfate Sodium [Elmiron] 100 mg PO TID@0600,1200,19004/20/23 [History] Pravastatin Sodium [Pravachol] 20 mg PO HS@19004/20/23 [History] Tiotropium 18 Mcg/Puff [Spiriva] 1 cap INHALATION RT-DAILY 04/20/23 [History] Vit C/E/Zn/Coppr/Lutein/Zeaxan [Preservision Areds 2 Softgel] 1 cap PO BID@1200,1900 04/20/23 [History] traMADol HCL 50 mg PO BID PRN 04/20/23 [History] Acetaminophen Tab [Tylenol] 650 mg PO Q6HR PRN tab 04/22/23 [Rx] Apixaban [Eliquis] 5 mg PO BID #60 tab 04/22/23 [Rx] Cefdinir [Omnicef] 300 mg PO Q12HR #6 capsule 04/22/23 [Rx] Metoprolol Tartrate [Lopressor] 50 mg PO BID #60 tab 04/22/23 [Rx] Follow up Appointment(s)/Referral(s): Roverto Haro MD [STAFF PHYSICIAN] - 1 Week (Please make a follow-up appointment with cardiology. This is important since a-fib was new for you!) Nonstaff,Physician [REFERRING] - 1-2 days (Please make a follow-up with your primary care doctor. ) Patient Instructions/Handouts: A-fib (Atrial Fibrillation) (DC) Discharge Disposition: HOME WITH HOME HEALTH SERVICES
== END 2023-04-22 12:42 | disposition home health service (06) ==
LOC: EC 08:13 → INTOOBSV 10:26 → 3SCARD 10:26 → UNDODISIN 04-22 12:42
PROVIDERS: ADMIT Student in an Organized Health Care Education/Training Program; ATTEND Student in an Organized Health Care Education/Training Program
DX: I48.0 Paroxysmal atrial fibrillation (principal); N39.0 Urinary tract infection, site not specified; J45.909 Unspecified asthma, uncomplicated; G89.29 Other chronic pain; M54.9 Dorsalgia, unspecified; E78.5 Hyperlipidemia, unspecified; E03.9 Hypothyroidism, unspecified; I10 Essential (primary) hypertension; Z86.718 Personal history of other venous thrombosis and embolism; Z79.82 Long term (current) use of aspirin; Z79.890 Hormone replacement therapy; Z79.899 Other long term (current) drug therapy; Z79.51 Long term (current) use of inhaled steroids
CPT/HCPCS: 96366 ×2; 96368; 96365; 99291; 36415; 94640 ×4; 94760 ×2; 93005; 93306; 85379; 83880; 80053; 80048; 84443; 83735; 84484; 85025 ×2; 85610 ×2; 85730 ×2; 81001; 87040; 87086; 87077; 87186; 71046; G0378 ×3; J0696 ×3; J1644 ×2